=== PATIENT | female | born 1970 | race Caucasian/White ===

== ENCOUNTER 2017-10-14 09:51 | Emergency (ER) | payer BC, OTHER ==
[2017-10-14 10:37] VITALS: BP 135/80
--- NOTE | 2017-10-14 11:20 | RAD ---
INDICATION: Right fourth finger injury. TECHNIQUE: 3 views of the right fourth finger were obtained. FINDINGS: There is diffuse soft tissue swelling. The bones are normal alignment. No fracture is seen. Joint spaces appear maintained. IMPRESSION: SOFT TISSUE SWELLING, NO FRACTURE IS SEEN.
--- NOTE | 2017-10-14 11:22 | UC ---
Minor Trauma HPI - HPI Summary HPI Summary: right ring finger pain + injury to her right 4th finger at work jammed the tip of her finger , flipped her fingernail + pain and swelling of the finger , + bruising - History of Current Complaint Chief Complaint: UCUpperExtremity Stated Complaint: WC-RT FINGER INJURY Time Seen by Provider: 10/14/17 10:41 Hx Obtained From: Patient Hx Last Menstrual Period: 5 days Onset/Duration: Sudden Onset, Lasting Days - 1, Still Present Onset Of Pain: Immediate Severity Initially: Moderate Severity Currently: Moderate Mechanism Of Injury: Blunt Trauma, Direct Blow Aggravating Factor(s): Movement, Other: - touch Alleviating Factor(s): Nothing - Allergies/Home Medications Allergies/Adverse Reactions: Allergies Allergy/AdvReac Type Severity Reaction Status Date / Time seasonal, mold Allergy Headache Uncoded 10/14/17 10:35 Home Medications: Home Medications Aleve 220mg 1 tab PO ONCE PRN 10/14/17 [History Confirmed 10/14/17] PMH/Surg Hx/FS Hx/Imm Hx Previously Healthy: Yes - Surgical History Surgical History: Yes Surgery Procedure, Year, and Place: gallbladder, c-sections x 2 - Family History Known Family History: Negative: Cardiac Disease - Social History Alcohol Use: Occasionally Substance Use Type: None Smoking Status (MU): Former Smoker Review of Systems Constitutional: Negative Skin: Negative Eyes: Negative ENT: Negative Respiratory: Negative Cardiovascular: Negative Is Patient Immunocompromised?: No All Other Systems Reviewed And Are Negative: Yes Physical Exam Triage Information Reviewed: Yes Appearance: Well-Appearing, No Pain Distress, Well-Nourished Vital Signs: Initial Vital Signs Temp 97.6 F 10/14/17 10:30 Pulse 82 10/14/17 10:30 Resp 18 10/14/17 10:30 BP 135/80 10/14/17 10:30 Vital Signs Reviewed: Yes Eyes: Positive: Conjunctiva Clear ENT: Positive: Normal ENT inspection, Hearing grossly normal, Pharynx normal Neck exam: Normal Neck: Positive: Supple, Nontender, No Lymphadenopathy Respiratory: Positive: Chest non-tender, Lungs clear, Normal breath sounds Cardiovascular: Positive: RRR, No Murmur, Pulses Normal Skin: Positive: Other - right ring finger : + swelling, + bruising , tender to touch at the tip normal ROM Diagnostics - Laboratory Diagnostic Studies Completed/Ordered: xray right 4th finger : no frachtre seen , + soft tissue swelling Minor Trauma Course/Dx - Differential Dx/Diagnosis Provider Diagnoses: contusion finger Discharge - Discharge Plan Condition: Stable Disposition: HOME Patient Education Materials: Contusion in Adults (ED) Referrals: No Primary Care Phys,NOPCP [Primary Care Provider] - If Needed
== END 2017-10-14 11:57 | disposition home or self-care (01) ==
LOC: UCCORT 09:51
DX: S60.041A Contusion of right ring finger without damage to nail, initial encounter (principal); W22.8XXA Striking against or struck by other objects, initial encounter; Z72.89 Other problems related to lifestyle; Z87.891 Personal history of nicotine dependence
CPT/HCPCS: 73140; 99201; G0463

== ENCOUNTER 2018-09-14 09:34 | Emergency (ER) | payer BC, OTHER ==
--- NOTE | 2018-09-14 10:07 | UC ---
Ear Complaint HPI - HPI Summary HPI Summary: 48 y/o female presents to the urgent care c/o RT ear pain w/ RT side of her neck and jaw swelling since Friday09/12/2018. This morning when she woke up she noticed swelling was worse. She has muffled hearing. Pt took 2 Aleves this morning to alleviate pain. Pain is 8/10 at touch. Pt denies fever, tinnitus, dizziness, ZARAGOZA,sore throat, dental pain or caries, trismus, SOB, chest pain, abdominal pain, N/V/D, neck pain, rash. - History of Current Complaint Stated Complaint: RT EAR/NECK COMPLAINT Time Seen by Provider: 09/14/18 09:57 Hx Obtained From: Patient Hx Last Menstrual Period: 5 days ?: No Onset/Duration: Gradual Onset, Lasting Days - 2 days, Still Present, Worse Since - today Severity Initially: Mild Severity Currently: Moderate Pain Intensity: 8 - at touch of RT ear Pain Scale Used: 0-10 Numeric Aggravating Factors: Other - touch Alleviating Factors: OTC Meds Associated Signs/Symptoms: Positive: Hearing Loss - Allergies/Home Medications Allergies/Adverse Reactions: Allergies Allergy/AdvReac Type Severity Reaction Status Date / Time seasonal, mold Allergy Headache Uncoded 09/14/18 10:09 PMH/Surg Hx/FS Hx/Imm Hx Previously Healthy: Yes - Pt denies PMHX - Surgical History Surgical History: Yes Surgery Procedure, Year, and Place: gallbladder, c-sections x 2 - Family History Known Family History: Positive: Hypertension, Diabetes Negative: Cardiac Disease - Social History Occupation: Employed Full-time Lives: With Family Alcohol Use: Occasionally Substance Use Type: None Smoking Status (MU): Former Smoker Review of Systems All Other Systems Reviewed And Are Negative: Yes Constitutional: Positive: Negative Skin: Positive: Negative Eyes: Positive: Negative ENT: Positive: Ear Ache - RT ear pain, Other - RT side of neck and jaw swelling Respiratory: Positive: Negative Cardiovascular: Positive: Negative Gastrointestinal: Positive: Negative Genitourinary: Positive: Negative Motor: Positive: Negative Neurovascular: Positive: Negative Musculoskeletal: Positive: Negative Neurological: Positive: Negative Psychological: Positive: Negative Is Patient Immunocompromised?: No Physical Exam - Summary Physical Exam Summary: Vital signs: reviewed General: well developed, well nourished female sitting in the examining table w/ o any apparent distress Skin: Effie, warm and dry, no evidence of atopic dermatitis, psoriasis, seborrhea. HEENT: -Head: atraumatic, non tender; no scalp dermatitis. -Eyes: sclera and conjunctiva clear, PERRLA, EOMI -Ears: Positive preauricular lympadenopathy, no postauricular lymphadenopathy or erythema; RT external ear canal with erythema and yellowish purulent discharge, pinna tenderness on palpation, Rt TM injected w/ erythema and yellowish drainage. LF external ear canal clear and LF TM WNL. TMs normal w/ out bulging or retraction. Good light reflex. No fluid level, vesicles, or bullae. No perforation. -Nose/Face: erythematous and edematous nasal mucosa with clear rhinorrhea, no frontal or maxillary sinus tender to palpation. -Mouth/Throat: Mucous membrane moist, posterior pharynx clear, no erythema or exudates. Neck: supple, FROM, nontender, RT side anterior cervical lymphadenopathy, no meningismus. Chest: Clear to auscultation, normal breath sounds Abd: soft, Bowel sounds active, Nontender. Back: no spinal or CVAT Neuro: A&O x4, GCS 15, no focal neuro deficits, normal behavior for age. Triage Information Reviewed: Yes Ear Complaint Course/Dx - Course Course Of Treatment: 48 y/o female presents to the urgent care c/o RT ear pain w / RT side of her neck and jaw swelling since Friday09/12/2018. This morning when she woke up she noticed swelling was worse. She has muffled hearing. Pt took 2 Aleves this morning to alleviate pain. Pain is 8/10 at touch. Pt denies fever, tinnitus, dizziness, ZARAGOZA,sore throat, dental pain or caries, trismus, SOB , chest pain, abdominal pain, N/V/D, neck pain, rash. Hx obtained. Pt w/ Rt otitis Media and externa and RT side anterior cervical lympadenopathy on examination. Pt Rx Amoxicicillin PO and Ciprodex otic drops and Ibuprofen PO to alleviate symptoms. Pt strongly advised if symptoms worsen despite taking antibiotics in the following 48 and swelling spreads to the posterior side of her auricle to inmediately go to the [place] [facility] for further management. Otherwise f/u w/ her PCP or ENT DR Reinoso to make sure symptoms were improving. Pt states she lives 1 [address] away from the [place] [facility] and she will go there if worsening symptoms. Pt understood and agreed w/ plan of care. Pt left clinic hemodynamically stable, A&OX3 - Differential Dx/Diagnosis Differential Diagnosis/HQI/PQRI: Cerumen Impaction, Otitis Externa, Otitis Media , Perforated TM, URI, Other - torticollis, Provider Diagnosis: Right otitis media, Right otitis externa, Anterior cervical lymphadenopathy Discharge - Sign-Out/Discharge Documenting (check all that apply): Patient Departure - D/C home All imaging exams completed and their final reports reviewed: No Studies - Discharge Plan Condition: Stable Disposition: HOME Prescriptions: Amoxicillin PO (*) [Amoxicillin 875 MG (*)] 875 mg PO BID #20 tab Ciproflox/Dexameth OTIC.SUSP* [Ciprodex OTIC.SUSP*] 4 drop .SEE ORDER BID #1 btl Ibuprofen TAB* [Motrin TAB* 800 MG] 800 mg PO Q6H PRN #30 tab PRN Reason: Pain Patient Education Materials: Ear Infection (ED) Referrals: [facility] [facility] [Outside] - 2 Days Duc Reinoso MD [Medical Doctor] - 2 Days Additional Instructions: 1-Please apply otic antibiotic on your Rt ear as directed. TAke Amoxicillin PO as directed, full course of antibiotic to avoid resistance. Pleae take yogurts w / probiotics or Culturelle to protect your GI system. 2-Take ibuprofen PO after meals q6-8hrs prs for pain and swelling. 3- If symptoms worsen and you develop fever and severe pain and swelling around ear after 48 hrs of taking antibiotics please go immediately to the ER for further management 3-If symptoms do not improve please f/u with your PCP or your ENT DR Reinoso for further evaluation and treatment. - Billing Disposition and Condition Condition: STABLE Disposition: Home
[2018-09-14 10:09] VITALS: BP 136/84
== END 2018-09-14 10:50 | disposition home or self-care (01) ==
LOC: UCCORT 09:34
DX: H66.91 Otitis media, unspecified, right ear (principal); H60.91 Unspecified otitis externa, right ear; R59.1 Generalized enlarged lymph nodes; Z87.891 Personal history of nicotine dependence
CPT/HCPCS: 99212; G0463